=== PATIENT | female | born 1980 | race African-American/Black ===

== ENCOUNTER 2017-07-24 19:31 | Emergency (ER) | payer OTHER, MEDICAID ==
[~2017-07-24] VITALS: Ht 157.5 cm; Wt 76.0 kg
[2017-07-24] MEDS ORDERED: LORA2VIA33 PO (19:52)
[2017-07-24] MEDS ORDERED: EPINEPHRINE 1:1000 1 MG/ML AMP SUBCUT ONE (20:30)
[2017-07-24] MEDS ORDERED: METHYLPREDNISOLONE SOD SUCC 125 MG/2 ML VIAL IV ONE (20:30)
[2017-07-24] MEDS ORDERED: DIPHENHYDRAMINE 50MG/ML VIAL IV ONE (20:30)
[2017-07-24] MEDS ORDERED: FAMOTIDINE 20MG/2ML VIAL IV ONE (20:30)
[2017-07-24 23:15] VITALS: BP 139/88
== END 2017-07-24 23:16 | disposition home or self-care (01) ==
LOC: ER 20:03
DX: T78.40XA Allergy, unspecified, initial encounter (principal); F41.9 Anxiety disorder, unspecified; F32.9 Major depressive disorder, single episode, unspecified; Z91.013 Allergy to seafood; Z88.8 Allergy status to other drugs, medicaments and biological substances; Z87.891 Personal history of nicotine dependence; X58.XXXA Exposure to other specified factors, initial encounter
CPT/HCPCS: 81025; 96372; 96374; 96375; 99284; J0171; J1200; J2930; J3490; Z7610

== ENCOUNTER 2017-09-03 16:21 | Emergency (ER) | payer SELFPAY ==
[~2017-09-03] VITALS: Ht 157.5 cm; Wt 72.0 kg
[~2017-09-03 16:21] MED LIST: LORA2VIA33 PO
[2017-09-04 01:05] VITALS: BP 100/58
[2017-09-04] MEDS ORDERED: LORAZEPAM 0.5MG TABLET PO ONE (01:30)
[2017-09-04] MEDS ORDERED: DIPHENHYDRAMINE 25MG CAPSULE PO ONE (01:30)
[2017-09-04] MEDS ORDERED: ACETAMINOPHEN 325MG TABLET PO ONE (02:30)
== END 2017-09-04 03:05 | disposition home or self-care (01) ==
LOC: ER 16:21
DX: F41.0 Panic disorder [episodic paroxysmal anxiety] (principal); R21 Rash and other nonspecific skin eruption; F43.10 Post-traumatic stress disorder, unspecified; Z98.890 Other specified postprocedural states; Z86.59 Personal history of other mental and behavioral disorders
CPT/HCPCS: 99284; Q0163

== ENCOUNTER 2018-02-22 16:21 | Emergency (ER) | payer MEDICAID ==
[~2018-02-22] VITALS: Ht 157.5 cm; Wt 77.0 kg
[2018-02-22 18:15] LABS: HCG SCREEN NEGATIVE
[2018-02-22] MEDS ORDERED: ACETAMINOPHEN 500MG TABLET PO ONE (18:45)
[2018-02-22 19:35] VITALS: BP 95/66
== END 2018-02-22 20:45 | disposition home or self-care (01) ==
LOC: ER 16:21
DX: J06.9 Acute upper respiratory infection, unspecified (principal); F41.9 Anxiety disorder, unspecified; F17.200 Nicotine dependence, unspecified, uncomplicated; Z88.8 Allergy status to other drugs, medicaments and biological substances; Z91.013 Allergy to seafood
CPT/HCPCS: 71045; 84703; 87804; 93005; 99285; Z7610

== ENCOUNTER 2018-06-04 15:42 | Emergency (ER) | payer MEDICAID ==
[~2018-06-04] VITALS: Ht 157.5 cm; Wt 77.0 kg
[2018-06-04] MEDS ORDERED: ONDANSETRON 4MG ODT PO ONE (18:30)
[2018-06-04] MEDS ORDERED: HYDROCODONE/ACETAMINOPHEN 5/325MG TABLET PO ONE (18:30)
[2018-06-04 20:30] VITALS: BP 122/64
== END 2018-06-04 20:30 | disposition home or self-care (01) ==
LOC: ER 16:16
DX: S16.1XXA Strain of muscle, fascia and tendon at neck level, initial encounter (principal); S09.90XA Unspecified injury of head, initial encounter; F41.9 Anxiety disorder, unspecified; F17.200 Nicotine dependence, unspecified, uncomplicated; Z91.013 Allergy to seafood; Z88.9 Allergy status to unspecified drugs, medicaments and biological substances; Z88.8 Allergy status to other drugs, medicaments and biological substances; V49.19XA Passenger injured in collision with other motor vehicles in nontraffic accident, initial encounter; Y93.89 Activity, other specified; Y92.89 Other specified places as the place of occurrence of the external cause; Y99.8 Other external cause status
CPT/HCPCS: 70450; 71045; 72125; 81025; 99284; Q0162